=== PATIENT | female | born 1965 | race Caucasian/White ===

== ENCOUNTER 2019-07-05 06:12 | Day surgery (SDC) | payer MEDICARE, OTHER ==
[2019-07-04 17:40] VITALS: BMI 27.3
[2019-07-05] MEDS ORDERED: DEXAMETHASONE SOD PHOSPHATE 4 MG/1 ML VIAL ONE ×2 (07:14→08:30)
[2019-07-05] MEDS ORDERED: BENZOIN/ALOE VERA/STORAX/TOLU 58 ML BOTTLE ONE (07:14)
[2019-07-05] MEDS ORDERED: LIDOCAINE HCL 1%, 10 MG/ML (20ML VIAL) ONE (07:14)
[2019-07-05] MEDS ORDERED: MIDAZOLAM HCL 2 MG/2 ML SINGLE DOSE VIAL ONE ×2 (07:57)
[2019-07-05] MEDS ORDERED: BUPIVACAINE HCL/PF 0.5% (5 MG/ML) 30 ML VIAL IJ ONE (08:01)
[2019-07-05] MEDS ORDERED: LIDOCAINE HCL 1%, 10 MG/ML (20ML VIAL) PNB ONE (08:01)
[2019-07-05] MEDS ORDERED: BACITRACIN 50,000 UNITS VIAL TP ONE (08:02)
[2019-07-05] MEDS ORDERED: PROPOFOL 20 ML ONE (08:05)
[2019-07-05] MEDS ORDERED: SUCCINYLCHOLINE CHLORIDE 200 MG/10 ML SYRINGE ONE (08:05)
[2019-07-05] MEDS ORDERED: ceFAZolin 2 GRAM PREMIX BAG IVPB ONE (08:06)
--- NOTE | 2019-07-05 08:47 | OP ---
Operative Note - Note: Operative Date: 07/05/19 Pre-Operative Diagnosis: Hammer toe with painful hd 5th toe left. Operation: Arthroplasty PIPJ 5th toe left Findings: hypertrophic bone and soft tissue Post-Operative Diagnosis: Same as Pre-op Surgeon: Nathan Cage Gage Maker: Oswald Castillo Anesthesia: Local, MAC Specimens Removed: bone and skin Operative Report Dictated: Yes
[2019-07-05 08:52] VITALS: TEMP 97.4
--- NOTE | 2019-07-05 09:15 | OP ---
DATE OF OPERATION: 07/05/2019 PREOPERATIVE DIAGNOSIS: Hammertoe, fifth toe, left foot, with pain. POSTOPERATIVE DIAGNOSIS: Hammertoe, fifth toe, left foot, with pain. PROCEDURE: Arthroplasty, proximal interphalangeal, fifth toe, left foot, with angulated bone cut. DESCRIPTION OF PROCEDURE: After noting all preoperative vital signs were within normal limits and after surgical consent was signed and witnessed, the patient was brought to the OR, placed on the table in supine position. An IV line had been started prior to the patient coming to the OR. Once the patient was on the table, patient was given a local infiltrate in a Tello block fashion around the 5th metatarsophalangeal joint. Once this was done, the foot was then prepped and draped in the usual sterile fashion, and a well-padded ankle tourniquet had been applied to the left ankle prior to the prep and drape. The foot was then elevated and exsanguinated. Attention was then directed to the 5th toe of the left foot, where using 2 converging semi-elliptical incisions approximately 3 cm in length over the proximal interphalangeal joint, a wedge of skin was removed with the painful HD and sent down to pathology. At this time the incision was deepened using sharp and blunt dissection to the level of the extensor tendon. All unavoidable vessels were ligated in the usual fashion. All other neurovascular structures were retracted out of surgical site. At this time an incision was created in the extensor tendon going from medial to lateral and reflected proximally, exposing the head of the proximal phalanx. Utilizing a sagittal saw going from dorsal plantar in an angulated fashion with the distal portion being on the medial side and the proximal portion being on the lateral side, a cut was made from dorsal to plantar through and through. The cut was made and the specimen was removed and sent down to pathology. At this time the wound was explored. There were no remaining spicules noted. A ball bur was used to remodel the remaining portion of the proximal phalanx, and irrigation was done with antibiotic irrigation. The extensor tendon was then reapproximated using 3-0 Vicryl in a simple interrupted suture fashion. Skin was then closed using 4-0 nylon in a simple interrupted suture fashion. A postoperative injection was put into place of 1 mL of dexamethasone, 4 mg per mL, and 4 mL of Marcaine 0.5% plain. A Betadine- soaked Adaptic, dry sterile gauze, and Ilsa dressing were then applied. Patient tolerated the anesthesia and procedure well. Tourniquet was deflated, and capillary filling time was instantaneous to all 5 toes of the left foot. JOVANNI Tran/[id number] MTDTho
[2019-07-05 10:30] VITALS: BP 128/53; PULSE 66
--- NOTE | 2019-07-06 18:41 | PATH ---
Surgical Pathology Report Patient Name: SAMIR PADILLA Med. Rec. #: [id number] /Age/Gender: 1965 (Age: 53) / F Account: [id number] Location: [facility] SURGICAL Taken: 07/05/2019 Received: 07/05/2019 Reported: 07/06/2019 Physicians: Nathan Cage DPM Specimen(s) Received BONE AND SKIN, PROXIMAL PHALANX, FIFTH TOE, LEFT Clinical History Hammertoe left fifth toe Final Diagnosis BONE AND "SKIN", PROXIMAL PHALANX, FIFTH TOE, LEFT, ARTHROPLASTY: BENIGN BONE WITH FATTY MARROW. Electronically Signed Beatrice Gibson M.D. Gross Description Received in formalin labeled "bone fifth proximal phalanx left with skin left fifth toe," is a 0.9 x 0.5 x 0.4 cm calix-yellow portion of bone with minimal attached soft tissue. No definitive skin is identified. The specimen is bisected and entirely submitted in one cassette, following decalcification. /07[facility]
== END 2019-07-05 10:30 | disposition home or self-care (01) ==
LOC: JASU-SURG 06:12
PROVIDERS: ATTEND Podiatrist Foot Surgery
PROC: 0SRQ0JZ Replacement of Left Toe Phalangeal Joint with Synthetic Substitute, Open Approach (ICD-10-PCS; principal; 2019-07-05 07:30)
DX: M20.42 Other hammer toe(s) (acquired), left foot (principal)
CPT/HCPCS: 73630-TC-LT; 84703; 88304-TC; 88311-TC